=== PATIENT | male | born 1975 | race Caucasian/White ===

== ENCOUNTER 2023-08-28 13:52 | Emergency (ER) | payer OTHER ==
[2023-08-28 14:01] VITALS: BP 127/80; PULSE 92; RESP 22; TEMP 98.2; BMI 40.4
== END 2023-08-28 15:51 | disposition home or self-care (01) ==
LOC: JERFT 13:52
DX: M25.572 Pain in left ankle and joints of left foot (principal)
CPT/HCPCS: 73610-TC-LT-FY; 73630-TC-LT; 99283-25